=== PATIENT | male | born 1945 | race Caucasian/White ===

== ENCOUNTER → 2021-03-19 | Outpatient (CLI) | payer MEDICARE, OTHER ==
[~2021-03-19] MED LIST: ALMACONE 360 M360 ML PO; ARICEPT 5MG PO; ASPERCREME1 EACH TP; ASPI325T6 PO; ASPIRIN 32325 MG/TAB PO; ASPIRIN 81M81 MG/TA2 PO; ASPIRIN E.C. 8181 MG PO; ATHLETE'S FOOT1% TP; ATIVAN 0.50.5 MG/TAB PO; BACTRIM DS 8001 TAB PO; CEPHALEXIN500 M1 PO; CLOTRIM ANTIFUNGAL1% TP; DEBROX OT; DIOVAN80 MG PO; DOXYCYCLINE 10100 MG PO; FERROUSAL325 MG PO; FLOMAX 0.40.4 MG/CAP PO; GLUCERNA 1.2 C240 ML PO; GLUCERNA 240 M240 ML; GLUCERNA 240 M240 ML PO; GLUCOPHAGE500 MG/TAB PO; HEPARIN LOCK FLU5 M1 IV; IMODIUM 2MG CAPS2 MG PO; JANUVIA100 MG PO; LANTUS100 U/ML SC; LASIX 40MG TABL40 MG PO; LEVEMIR FLEX100 U/ML SQ; LEVEMIR100 U/ML SQ; LEXAPRO 10MG10 MG PO; LIDOCAINE 4% TOP; LIPITOR20 MG PO; LOPRESSOR 225 MG/TAB PO; LOTRIMIN AF1% TOP; LOVENOX 3030 MG/0.3 SQ; METAMUCIL3.4 GM/DOS PO; METFORMIN500 MG PO; MULTIPLE VITAMI1 CAP PO; MULTIPLE VITAMI1 TA5 PO; NATURAL TEARS; NORCO 325 MG-51 TAB PO; NOVOLIN N100 U/ML SQ; NOVOLOG 100U100 U/M1 SC; NOVOLOG 100U100 U/M1 SQ; NOVOLOG FLEX100 U/ML SQ; NS INT FLUSH 1010 ML IV; NYAMYC100000 U/G TP; NYSTATIN POWDER15 GM TOP; NYSTATIN POWDER30 GM TOP; PEPCID 20MG TAB20 MG PO; PHENERGAN25 MG RC; PLAVIX 75MG TAB75 MG PO; PRAVACHOL 40MG40 MG PO; PRINIVIL2.5 MG PO; RISPERDAL 0.5M0.5 MG PO; ROBITUSSIN A-C S1 M1 PO; ROBITUSSIN DM 105 ML PO; SENOKOT S 50 MG1 TAB PO; TEARS NATURALE15 M1 OD; TYLENOL 325MG325 MG PO; TYLENOL 500MG500 MG PO; TYLENOL 650MG650 M2 PO; ULTRAM 50MG TAB50 MG PO; VISINE 15 ML15 ML OP; VISINE 15 ML15 ML OU; VITAMIN C500 MG PO; ZESTRIL2.5 MG PO; ZOCOR 20MG20 MG PO; ZOCOR 40MG40 MG PO; ZOCOR20 MG PO
[2021-03-19 15:27] LABS: CREATININE, serum 1.03 (0.66-1.25); POTASSIUM 4.6 mmol/L (3.4-5.0)
== END ==
LOC: ZLAB.STJ 14:45
PROVIDERS: Internal Medicine
DX: E11.40 Type 2 diabetes mellitus with diabetic neuropathy, unspecified (principal)

== ENCOUNTER → 2021-05-15 | Outpatient (CLI) | payer MEDICARE, OTHER ==
[2021-05-15 09:18] LABS: COLLECTION METHOD RANDOM VOIDED
[2021-05-15 09:30] LABS: MUCOUS Present /lpf; PH 7 (5-8); URINE APPEARANCE Cloudy; URINE BACTERIA Moderate /hpf; URINE BILIRUBIN Negative (NEGATIVE); URINE BLOOD 2+ (NEGATIVE); URINE COLOR Yellow; URINE GLUCOSE Negative (NEGATIVE); URINE KETONE Negative (NEGATIVE); URINE LEUKOCYTE ESTERASE 3+ (NEGATIVE); URINE NITRATE Negative (NEGATIVE); URINE PROTEIN(semi-quant) 1+ (NEGATIVE); URINE UROBILINOGEN Negative (NEGATIVE); URINE WBC >50 /hpf
== END ==
LOC: ZLAB.STJ 06:56
PROVIDERS: Internal Medicine
DX: E11.40 Type 2 diabetes mellitus with diabetic neuropathy, unspecified (principal)

== ENCOUNTER → 2021-10-22 | Outpatient (CLI) | payer MEDICARE, OTHER | LOC: ZLAB.STJ 10:23 | DX: D50.9 Iron deficiency anemia, unspecified (principal) ==

== ENCOUNTER → 2022-01-13 | Outpatient (CLI) | payer MEDICARE, OTHER | LOC: ZLAB.STJ 18:35 | DX: Z01.89 Encounter for other specified special examinations (principal) ==

== ENCOUNTER → 2022-03-13 | Outpatient (REF) | LOC: ZLAB.STJ 12:07 | DX: E78.5 Hyperlipidemia, unspecified (principal) ==

== ENCOUNTER → 2022-07-16 | Outpatient (CLI) | payer MEDICARE, OTHER | LOC: ZCOL.LAB 10:53 | DX: Z13.29 Encounter for screening for other suspected endocrine disorder (principal) ==

== ENCOUNTER → 2022-07-17 | Outpatient (CLI) | payer MEDICARE, OTHER | LOC: ZCOL.LAB 15:32 | DX: G40.89 Other seizures (principal) ==

== ENCOUNTER 2022-11-10 10:23 | Emergency (ER) | payer MEDICARE, OTHER ==
[~2022-11-10] VITALS: Ht 170.2 cm; Wt 64.5 kg
[~2022-11-10 10:23] MED LIST changes: +ALLFEN400 MG PO; +AMOXICILLIN 8751 TAB PO; +B-12 500 MCG PO; +BETAPACE 80MG80 MG PO; +CLARITIN 1010 MG/TAB PO; +COZAAR 25MG25 MG/TAB PO; +DILANTIN 100MG100 MG PO; +DILANTIN KAPSEA30 MG PO; +LIPITOR 40MG TA40 MG PO; +MASON NATURAL2000 IU PO; +MELATONIN5 M1 PO; +NAMENDA 10MG TA10 MG PO
[2022-11-10 10:27] VITALS: TEMP 97.7
[2022-11-10 11:25] LABS: BASO # 0.1 K/mm3 (0.0-0.2); BASO % 0.7 % (0.0-2.0); EOS # 0.5 K/mm3 (0.0-0.7); EOS % 3.7 % (0.0-4.0); GRAN # 8.8 K/mm3 (1.4-6.5); GRAN % 65.3 % (42.2-75.2); HEMATOCRIT 42.5 % (42.0-52.0); HEMOGLOBIN 13.9 g/dl (13.5-18.0); LYMPH % 22.4 % (20.0-51.0); MEAN CELL VOLUME 97 fl (80.0-100.0); MEAN CORPUSCULAR HEMOGLOBIN 32 pg (27-31); MEAN CORPUSCULAR HGB CONC 33 g/dl (33.0-37.0); MEAN PLATELET VOLUME 9.8 fl (7.4-10.4); MONO % 7.5 % (1.7-9.3); PLATELET COUNT 361 K/mm3 (130-400); RED BLOOD COUNT 4.37 M/mm3 (4.20-5.60)
[2022-11-10 12:00] LABS: ALBUMIN 2.8 gm/dL (3.4-4.8); BILIRUBIN,TOTAL 0.3 mg/dL (0.2-1.2); CALCIUM 8.4 mg/dL (8.4-10.2); CREATININE, serum 0.88 mg/dL (0.72-1.25); POTASSIUM 3.8 mmol/L (3.5-4.5); TOTAL PROTEIN 6.8 gm/dL (6.2-8.1)
[2022-11-10 12:47] LABS: COLLECTION METHOD CATHETER
[2022-11-10 13:03] LABS: PH 6.5 (5.0-8.5); URINE APPEARANCE Clear (CLEAR/HAZY); URINE BLOOD 2+ (NEGATIVE); URINE COLOR Yellow (YELLOW); URINE GLUCOSE Negative (NEGATIVE); URINE KETONE Negative (NEGATIVE); URINE NITRATE Negative (NEGATIVE); URINE PROTEIN(semi-quant) 1+ (NEGATIVE); URINE UROBILINOGEN 0.2 E.U/dL (0.2-1.0)
[2022-11-10 13:20] LABS: SQUAMOUS EPITHELIAL 0-2 /hpf (0-10); URINE BACTERIA Rare /hpf (NONE SEEN); URINE RBC 0-2 /hpf (0-2)
[2022-11-10 14:15] VITALS: BP 165/82; PULSE 71
== END 2022-11-10 14:55 | disposition home or self-care (01) ==
LOC: COL.ER 10:23
PROVIDERS: Emergency Medicine; Physician Assistant
DX: R53.81 Other malaise (principal); R53.83 Other fatigue; D72.829 Elevated white blood cell count, unspecified; Z20.822 Contact with and (suspected) exposure to COVID-19
CPT/HCPCS: J7030